=== PATIENT | female | born 1945 | race Caucasian/White ===

== ENCOUNTER 2018-06-22 10:44 | Day surgery (SDC) | payer OTHER ==
[2018-06-21 13:01] VITALS: BMI 25.5
[2018-06-22 13:01] VITALS: TEMP 97.9
[2018-06-22 13:54] VITALS: BP 127/62; PULSE 56
--- NOTE | 2018-06-23 15:24 | PATH ---
Surgical Pathology Report Patient Name: GURMEET ARMANDO [facility]. Rec. #: [id number] /Age/Gender: 1945 (Age: 72) / F Account: [id number] Location: U-ENDOSCOPY Taken: 06/22/2018 Received: 06/22/2018 Reported: 06/23/2018 Physicians: Francisco J Moreno D.O. Specimen(s) Received A: BX GASTRIC POLYP BX B: BX ANTRUM AND BODY Clinical History Epigastric pain Postoperative diagnosis: Gastric polyp Final Diagnosis A. GASTRIC POLYP, POLYPECTOMY: FUNDIC GLAND POLYP. IMMUNOHISTOCHEMICAL STAIN FOR H. PYLORI IS NEGATIVE. B. STOMACH, ANTRUM AND BODY, BIOPSY: GASTRIC MUCOSA WITH MILD CHRONIC GASTRITIS. IMMUNOHISTOCHEMICAL STAIN FOR H. PYLORI IS NEGATIVE. Electronically Signed Francine Reilly M.D. Gross Description A. Received in formalin, labeled "gastric polyp biopsy" are 4 falk, irregular portions of soft tissue ranging from 0.2-0.5 cm. in greatest dimension. The specimens are submitted in toto in one cassette. B. Received in formalin, labeled "antrum and body biopsy" is a falk, irregular portion of soft tissue measuring 0.4 cm. in greatest dimension. The specimen is submitted in toto in one cassette. 06/22/201806/22/2018
== END 2018-06-22 13:53 | disposition home or self-care (01) ==
LOC: JASU-ENDO 10:44
PROVIDERS: ATTEND Internal Medicine Gastroenterology
PROC: 0DB68ZX Excision of Stomach, Via Natural or Artificial Opening Endoscopic, Diagnostic (ICD-10-PCS; principal; 2018-06-22 11:45)
DX: K31.7 Polyp of stomach and duodenum (principal); R10.13 Epigastric pain
CPT/HCPCS: 88305-TC; 88342-TC